=== PATIENT | male | born 1980 | race Caucasian/White ===

== ENCOUNTER 2020-02-07 07:54 | Outpatient (CLI) | payer OTHER ==
[2020-02-07 16:33] LABS: #Basophils 0.1 thou/uL (0.0-0.2); #Eosinphils 0.1 thou/uL (0.0-0.7); #Lymphocytes 1.8 thou/uL (1.20-3.40); #Monocytes 0.3 thou/uL (0.11-0.59); #Neutrophils 3.3 thou/uL (1.40-6.50); %Eosinophils 1.6 % (0.0-10.0); %Lymphocytes 32.2 % (21.0-51.0); %Monocytes 5.9 % (0.0-10.0); %Neutrophils 59.3 % (42.0-75.0); Hemoglobin 15.2 g/dL (14.0-18.0); Mean Corpuscular HGB CONC 34.9 g/dL (32.0-36.0); Mean Corpuscular Hemoglobin 31.1 pg (27.0-31.0); Mean Platelet Volume 8.8 fL (7.4-10.4); Platelet Count 180 thou/uL (130-400); RBC Distribution Width 11.7 % (11.5-14.5); Red Blood Cell (RBC) Count 4.91 mill/uL (4.70-6.10); White Blood Cell (WBC) Count 5.6 thou/uL (4.8-10.8)
[2020-02-07 16:47] LABS: Anion Gap 11 mmol/L (10-20); BUN (Urea Nitrogen) 21 mg/dL (8.9-20.6); Calc. Creatinine Clearance 0 mL/min (70-130); Calcium 9.3 mg/dL (7.8-10.44); Carbon Dioxide 27 mmol/L (22-29); Chloride 105 mmol/L (98-107); Estimated GFR-MDRD 77; Glucose 93 mg/dL (70-105); Potassium 4.4 mmol/L (3.5-5.1); Sodium 139 mmol/L (136-145)
[2020-02-08 13:41] LABS: SARS-CoV-2 MS2 Positive; SARS-CoV-2 N Gene Negative; SARS-CoV-2 S Gene Negative; SARS-CoV-2 by NAA Not Detected (NotDetected); SARS-CoV-2 orf1ab Negative
== END 2020-02-07 07:55 | disposition home or self-care (01) ==
LOC: LABBT 07:54
PROVIDERS: ATTEND Specialist
DX: Z01.812 Encounter for preprocedural laboratory examination (principal); Z20.828 Contact with and (suspected) exposure to other viral communicable diseases; N62 Hypertrophy of breast
CPT/HCPCS: 80048; 85025; 87635; U0003

== ENCOUNTER 2020-02-12 06:56 | Day surgery (SDC) | payer OTHER ==
[2020-02-07 10:43] VITALS: BMI 25.2
[2020-02-12] MEDS ORDERED: Ketorolac Tromethamine 30 MG/ML VIAL ONE ×2 (07:29→12:51)
[2020-02-12] MEDS ORDERED: Acetaminophen 500 MG TAB ONE ×2 (07:29→12:51)
[2020-02-12] MEDS ORDERED: Famotidine/PF 20 mg/2ml Vial ONE (07:57)
[2020-02-12] MEDS ORDERED: Midazolam HCl 2 mg/2 ml Vial ONE ×2 (07:57→13:10)
[2020-02-12] MEDS ORDERED: Lidocaine 1% PF 5 ML VIAL ONE (09:53)
[2020-02-12] MEDS ORDERED: PROPOFOL 200 MG/20 ML VIAL ONE (09:53)
[2020-02-12] MEDS ORDERED: Bupivacaine 0.25% HCL 30 ML VIAL ONE (12:59)
[2020-02-12] MEDS ORDERED: Lidocaine 1% w/Epinephrine 1:100K 20 ML VIAL ONE (12:59)
[2020-02-12] MEDS ORDERED: Fentanyl 100 MCG/2 ML VIAL ONE (13:10)
[2020-02-12] MEDS ORDERED: Bacitracin Zinc Ointment 30 gm TUBE ONE (14:03)
--- NOTE | 2020-02-13 15:09 | OP ---
DATE OF PROCEDURE: 02/12/2020 PREOPERATIVE DIAGNOSIS: Left breast gynecomastia. POSTOPERATIVE DIAGNOSIS: Left breast gynecomastia. PROCEDURES PERFORMED: Left breast mastectomy for gynecomastia. ANESTHESIA: General endotracheal. INDICATIONS: Patient is a 39-year-old white male. He has easily palpable and symptomatic left gynecomastia. I could find no obvious reversible etiology for his gynecomastia. In light of the symptomatic nature of this, I therefore discussed surgical options. He desires to proceed with a mastectomy with removal of the glandular tissue. DESCRIPTION OF OPERATION: Informed consent was obtained. Patient was taken to the operating room, where general anesthesia was obtained with patient in supine position. Left breast was prepped with ChloraPrep and draped in a sterile fashion. The area of incision was marked. Local anesthetic was infiltrated using a mixture of 1% lidocaine with epinephrine and 0.25% Marcaine. Curvilinear incision was created within what would approximate an inframammary crease. Dissection was carried through skin and subcutaneous tissue. The dissection was carried down to the pectoral fascia and the hypertrophic glandular tissue was dissected off the fascia. Then, a second plane was dissected between the glandular tissue and the overlying nipple-areolar complex. To avoid excessive tissue removal, not all of the glandular tissue was removed, but a plane was developed under the nipple-areolar complex. The specimen was passed off the field in two pieces. Meticulous hemostasis was obtained within the wound. It was irrigated and inspected. A quarter-inch Milbridge drain was placed within the wound and brought up the lateral aspect where it was secured to the skin with a 3-0 Prolene suture. The remainder of the wound was closed in layers with 3-0 Vicryl and 3-0 Prolene. Antibiotic ointment and a gauze compression dressing were applied. There were no complications. Patient tolerated the procedure well and was taken to recovery room in stable condition. Job ID: [id number]
== END 2020-02-12 15:44 | disposition home or self-care (01) ==
LOC: SDC 06:56
PROVIDERS: ATTEND Specialist
PROC: 0HBU0ZZ Excision of Left Breast, Open Approach (ICD-10-PCS; principal; 2020-02-12)
DX: N62 Hypertrophy of breast (principal); F41.9 Anxiety disorder, unspecified; F32.9 Major depressive disorder, single episode, unspecified; Z79.899 Other long term (current) drug therapy
CPT/HCPCS: 88305; J0690; J1885; J2250; J2704; J3010; S0020; S0028